=== PATIENT | male | born 1980 | race Caucasian/White ===

== ENCOUNTER → 2018-06-02 | Outpatient (CLI) | payer BC ==
[~2018-06-02] MED LIST: FLU60VIA41 IM
--- NOTE | 2018-06-02 15:38 | RADIOLOGY IMAGING REPORT ---
FACILITY: [facility] [place] PATIENT NAME: Hong Matthews : 1980 MR: [id number] V: [id number] EXAM DATE: ORDERING PHYSICIAN: PALOMA MILLER TECHNOLOGIST: Location: [facility] Patient: Hong Matthews : 1980 Visit/Account:[id number] Date of Sevice: 06/02/2018 Chest with lateral, two views. HISTORY: TB exposure as a child. COMPARISON: None. The heart and mediastinum are unremarkable. Pulmonary vessels are unremarkable. The lungs are clear . The pleural surfaces are unremarkable. No pneumothorax. No lung cavities. No acute bony abnormali ties. IMPRESSION: No evidence of acute cardiopulmonary disease. No evidence of tuberculosis. Report Dictated By: Maco Gleason MD at 06/02/2018 3:31 PM Report E-Signed By: Maco Gleason MD at 06/02/2018 3:35 PM WSN:[id number]
== END ==
LOC: RAD 14:19
PROVIDERS: ATTEND Family Medicine
DX: Z86.11 Personal history of tuberculosis (principal)
CPT/HCPCS: 71046